=== PATIENT | female | born 1965 | race Caucasian/White ===

== ENCOUNTER 2016-12-06 17:02 | Inpatient (IN) | payer OTHER ==
[~2016-12-06] VITALS: Ht 167.6 cm; Wt 109.2 kg
[~2016-12-06 17:02] MED LIST: ATOR40TA78 PO; AZEL205. INH; COLE1TAB2 PO; COLE625T12 PO; DEXA1.5T7 PO; DICY20TA29 PO; DULO60CA7 PO; ESOM2.5S PO; FURO-92 PO; FURO80TA77 PO; GABA-826 PO; GABA800T2 PO; HYDR-882 PO; HYDR200T PO; IPRA14.7 INH; LISI-167 PO; LORA2TAB99 PO; METF10002 PO; METF500T27 PO; METO-93 PO; METO200T5 PO; ONDA4TAB10 PO; OXYC15TA PO; OXYC20TA42 PO; PREG200C PO; SAXA5TAB PO; SPIR25TA PO; TIOT18CA INH; VIT B SQ; [UNRECOGNIZED DRUG - CODE] PO
[2016-12-06] MEDS ORDERED: ALBUTEROL/IPRATROPIUM 2.5MG/0.5MG, 3 ML ONE (17:27)
[2016-12-06] MEDS ORDERED: ALBUTEROL/IPRATROPIUM 2.5MG/0.5MG, 3 ML NPPB SCH (17:30)
[2016-12-06] MEDS ORDERED: SODIUM CHLORIDE FLUSH 10ML SYR IVF ONE ×2 (17:30→18:00)
[2016-12-06 17:37] LABS: HEMOGLOBIN 17.1 g/dL (11.7-16.4); WHITE BLOOD COUNT 13.9 x10^3/uL (3.4-10)
[2016-12-06 17:46] LABS: BLOOD UREA NITROGEN 7 mg/dL (7-18)
[2016-12-06] MEDS ORDERED: ALBUTEROL SULFATE 2.5 MG/3 ML ONE (18:13)
[2016-12-06] MEDS ORDERED: ALBUTEROL SULFATE 2.5 MG/3 ML NPPB PRN (18:15)
[2016-12-06 18:23] LABS: ASPARTATE AMINO TRANSFERASE 34 U/L (15-37)
[2016-12-06] MEDS ORDERED: FLUT16SP NAS (18:28)
[2016-12-06] MEDS ORDERED: DULO60CA7 PO (18:28)
[2016-12-06] MEDS ORDERED: GABA600T2 PO (18:28)
[2016-12-06] MEDS ORDERED: ALLO300T PO (18:28)
[2016-12-06 18:29] LABS: IS PT STATUS REG ER OR PRE ER? YES
[2016-12-06] MEDS: ALBUTEROL 0.5%, 20ML NPPB SCH ×2 (18:29→18:41)
[2016-12-06] MEDS ORDERED: ALBUTEROL SULFATE 2.5MG/0.5ML ONE (18:32)
[2016-12-06] MEDS ORDERED: METO50TA82 PO (18:35)
[2016-12-06] MEDS ORDERED: BUPIVACAINE TP (18:35)
[2016-12-06] MEDS ORDERED: METF500T4 PO (18:35)
[2016-12-06] MEDS ORDERED: FURO-93 PO (18:35)
[2016-12-06] MEDS ORDERED: SPIR25TA3 PO (18:35)
[2016-12-06] MEDS ORDERED: INDO50CA PO (18:35)
[2016-12-06] MEDS ORDERED: SULF-169 PO (18:35)
[2016-12-06] MEDS ORDERED: ATOR40TA PO (18:35)
[2016-12-06] MEDS ORDERED: INSU200I4 SQ (18:35)
[2016-12-06] MEDS ORDERED: HYDROCORTISONE PO ×2 (18:35)
[2016-12-06] MEDS ORDERED: LACT1CAP35 PO (18:35)
[2016-12-06 21:52] VITALS: BP 110/73
[2016-12-06] MEDS ORDERED: ALBUTEROL/IPRATROPIUM 2.5MG/0.5MG, 3 ML NPPB PRN (22:00)
[2016-12-06] MEDS: ALBUTEROL/IPRATROPIUM 2.5MG/0.5MG, 3 ML NPPB SCH (22:00)
[2016-12-07] MEDS ORDERED: TEMAZEPAM 15 MG CAPSULE PO PRN
[2016-12-07] MEDS ORDERED: ENALAPRILAT 1.25 MG/ML, 2ML IVPush PRN
[2016-12-07] MEDS ORDERED: ONDANSETRON ODT 4 MG PO PRN
[2016-12-07] MEDS: CEFDINIR 300 MG CAPSULE PO SCH ×2 (00:46→12:07)
[2016-12-07] MEDS: ENOXAPARIN 40 MG/0.4 ML SQ SCH (00:46)
[2016-12-07] MEDS: NICOTINE 14MG/24 HR PATCH.TD24 TD SCH (00:46)
[2016-12-07] MEDS: DOXYCYCLINE 100MG TABLET PO SCH ×2 (00:46→08:38)
[2016-12-07 00:51] VITALS: BP 117/69
[2016-12-07 05:38] LABS: HEMATOCRIT 48.3 % (34.6-47.8)
[2016-12-07 05:42] LABS: BLOOD UREA NITROGEN 12 mg/dL (7-18)
[2016-12-07] MEDS: ALBUTEROL/IPRATROPIUM 2.5MG/0.5MG, 3 ML NPPB SCH ×4 (07:38→20:10)
[2016-12-07 07:43] VITALS: BP 109/67
[2016-12-07 10:18] VITALS: BP 99/61
[2016-12-07] MEDS: INSULIN ASPART 100 UNITS/ML, PEN SQ-INSULIN SCH ×3 (12:07→22:02)
[2016-12-07] MEDS ORDERED: SODIUM CHLORIDE 0.9% 1,000 ML IV SCH (13:41)
[2016-12-07 14:13] VITALS: BP 114/62
[2016-12-07] MEDS ORDERED: OMNIPAQUE 350 MG/ML, 100ML BOTTLE ONE (14:37)
[2016-12-07] MEDS: methylPREDNISolone SOD SUCC 125 MG/2 ML IVPush SCH ×2 (16:15→22:03)
[2016-12-07] MEDS: GABAPENTIN 400 MG CAPSULE PO SCH ×2 (16:15→22:04)
[2016-12-07] MEDS ORDERED: HYDROcodone/APAP 5/325 TABLET PO PRN (17:00)
[2016-12-07] MEDS: CEFTRIAXONE PMX 1GM/50ML 50 ML IV SCH (17:26)
[2016-12-07] MEDS: DOXYCYCLINE 100 MG in DEXTROSE 5% 250 ML IV SCH (17:26)
[2016-12-07 20:45] VITALS: BP 113/61
[2016-12-07] MEDS ORDERED: DIPHENHYDRAMINE 50 MG CAPSULE PO PRN (21:00)
[2016-12-07] MEDS ORDERED: DIPHENHYDRAMINE 25 MG CAPSULE ONE (21:26)
[2016-12-07] MEDS: ATORVASTATIN 40 MG TABLET PO SCH (22:03)
[2016-12-07] MEDS: INSULIN DETEMIR 100 UNITS/ML, PEN SQ-INSULIN SCH (22:03)
[2016-12-08 02:40] VITALS: BP 121/69
[2016-12-08] MEDS: ALBUTEROL/IPRATROPIUM 2.5MG/0.5MG, 3 ML NPPB SCH ×4 (03:06→19:28)
[2016-12-08] MEDS: methylPREDNISolone SOD SUCC 125 MG/2 ML IVPush SCH ×4 (04:00→22:00)
[2016-12-08] MEDS: DOXYCYCLINE 100 MG in DEXTROSE 5% 250 ML IV SCH ×2 (05:06→16:42)
[2016-12-08 06:01] LABS: HEMATOCRIT 44.5 % (34.6-47.8); HEMOGLOBIN 14.6 g/dL (11.7-16.4); WHITE BLOOD COUNT 15.7 x10^3/uL (3.4-10)
[2016-12-08 06:11] LABS: BLOOD UREA NITROGEN 12 mg/dL (7-18)
[2016-12-08 07:52] VITALS: BP 104/57
[2016-12-08] MEDS: INSULIN ASPART 100 UNITS/ML, PEN SQ-INSULIN SCH ×4 (08:54→20:44)
[2016-12-08] MEDS: INSULIN DETEMIR 100 UNITS/ML, PEN SQ-INSULIN SCH ×2 (08:55→20:43)
[2016-12-08] MEDS: FUROSEMIDE 20 MG TABLET PO SCH (08:55)
[2016-12-08] MEDS: SPIRONOLACTONE 25 MG TABLET PO SCH (08:55)
[2016-12-08] MEDS: GABAPENTIN 400 MG CAPSULE PO SCH ×3 (08:55→20:41)
[2016-12-08] MEDS: ALLOPURINOL 300 MG TABLET PO SCH (08:56)
[2016-12-08] MEDS: DULOXETINE 30 MG CAPSULE.DR PO SCH (08:56)
[2016-12-08] MEDS: LACTOBACILLUS CHEW TABLET PO SCH (08:56)
[2016-12-08] MEDS: FLUTICASONE NASAL SPRAY 16GM NAS SCH (11:16)
[2016-12-08] MEDS: GUAIFENESIN 200 MG TABLET PO SCH ×3 (11:16→20:41)
[2016-12-08 13:45] VITALS: BP 106/65
[2016-12-08] MEDS: CEFTRIAXONE PMX 1GM/50ML 50 ML IV SCH (16:42)
[2016-12-08 19:41] VITALS: BP 117/63
[2016-12-08] MEDS: ATORVASTATIN 40 MG TABLET PO SCH (20:41)
[2016-12-08] MEDS: TEMAZEPAM 15 MG CAPSULE PO PRN (21:39)
[2016-12-08] MEDS: NICOTINE 14MG/24 HR PATCH.TD24 TD SCH ×2 (23:15)
[2016-12-08] MEDS: ENOXAPARIN 40 MG/0.4 ML SQ SCH ×2 (23:16)
[2016-12-09 01:13] VITALS: BP 122/68
[2016-12-09] MEDS ORDERED: VANCOMYCIN PER PHARMACY MC PRN (03:00)
[2016-12-09] MEDS: ALBUTEROL/IPRATROPIUM 2.5MG/0.5MG, 3 ML NPPB SCH ×4 (03:10→21:00)
[2016-12-09] MEDS ORDERED: PHARMACOKINETIC MONITORING MC PRN (03:30)
[2016-12-09] MEDS ORDERED: PHARMACOKINETIC CONSULTATION MC ONE (03:30)
[2016-12-09] MEDS: methylPREDNISolone SOD SUCC 125 MG/2 ML IVPush SCH ×2 (03:46→10:35)
[2016-12-09] MEDS: VANCOMYCIN 1,600 MG in SODIUM CHLORIDE 0.9% 250 ML IV SCH ×2 (03:49→17:07)
[2016-12-09] MEDS: DOXYCYCLINE 100 MG in DEXTROSE 5% 250 ML IV SCH ×2 (05:00→18:35)
[2016-12-09 05:31] LABS: HEMATOCRIT 43.8 % (34.6-47.8); HEMOGLOBIN 14.3 g/dL (11.7-16.4); WHITE BLOOD COUNT 19.9 x10^3/uL (3.4-10)
[2016-12-09 05:32] LABS: BLOOD UREA NITROGEN 13 mg/dL (7-18)
[2016-12-09] MEDS: GUAIFENESIN 200 MG TABLET PO SCH ×4 (06:00→20:22)
[2016-12-09] MEDS: INSULIN DETEMIR 100 UNITS/ML, PEN SQ-INSULIN SCH ×2 (08:31→20:24)
[2016-12-09] MEDS: FLUTICASONE NASAL SPRAY 16GM NAS SCH (08:32)
[2016-12-09] MEDS: INSULIN ASPART 100 UNITS/ML, PEN SQ-INSULIN SCH ×4 (08:32→20:25)
[2016-12-09] MEDS: GABAPENTIN 400 MG CAPSULE PO SCH ×3 (08:33→20:23)
[2016-12-09] MEDS: SPIRONOLACTONE 25 MG TABLET PO SCH (08:33)
[2016-12-09] MEDS: LACTOBACILLUS CHEW TABLET PO SCH (08:33)
[2016-12-09] MEDS: ALLOPURINOL 300 MG TABLET PO SCH (08:33)
[2016-12-09] MEDS: DULOXETINE 30 MG CAPSULE.DR PO SCH (08:33)
[2016-12-09] MEDS: FUROSEMIDE 20 MG TABLET PO SCH (08:33)
[2016-12-09 09:06] VITALS: BP 122/71
[2016-12-09] MEDS: CEFTRIAXONE PMX 1GM/50ML 50 ML IV SCH (16:16)
[2016-12-09 19:38] VITALS: BP 144/81
[2016-12-09] MEDS: ATORVASTATIN 40 MG TABLET PO SCH (20:22)
[2016-12-09] MEDS: TEMAZEPAM 15 MG CAPSULE PO PRN (20:27)
[2016-12-09] MEDS: ENOXAPARIN 40 MG/0.4 ML SQ SCH (23:25)
[2016-12-09] MEDS: NICOTINE 14MG/24 HR PATCH.TD24 TD SCH (23:26)
[2016-12-10 00:49] VITALS: BP 113/70
[2016-12-10] MEDS: ALBUTEROL/IPRATROPIUM 2.5MG/0.5MG, 3 ML NPPB SCH ×3 (03:00→13:26)
[2016-12-10] MEDS: VANCOMYCIN 1,600 MG in SODIUM CHLORIDE 0.9% 250 ML IV SCH (04:55)
[2016-12-10] MEDS: GUAIFENESIN 200 MG TABLET PO SCH ×2 (06:24→11:49)
[2016-12-10] MEDS: DOXYCYCLINE 100 MG in DEXTROSE 5% 250 ML IV SCH (06:24)
[2016-12-10 06:44] LABS: HEMATOCRIT 43.6 % (34.6-47.8); HEMOGLOBIN 14.1 g/dL (11.7-16.4)
[2016-12-10 06:52] LABS: BLOOD UREA NITROGEN 13 mg/dL (7-18)
[2016-12-10] MEDS: INSULIN ASPART 100 UNITS/ML, PEN SQ-INSULIN SCH ×2 (07:57→11:49)
[2016-12-10] MEDS: GABAPENTIN 400 MG CAPSULE PO SCH (07:59)
[2016-12-10] MEDS: FLUTICASONE NASAL SPRAY 16GM NAS SCH (07:59)
[2016-12-10] MEDS: DULOXETINE 30 MG CAPSULE.DR PO SCH (08:00)
[2016-12-10] MEDS: SPIRONOLACTONE 25 MG TABLET PO SCH (08:01)
[2016-12-10] MEDS: ALLOPURINOL 300 MG TABLET PO SCH (08:01)
[2016-12-10] MEDS: FUROSEMIDE 20 MG TABLET PO SCH (08:01)
[2016-12-10] MEDS: LACTOBACILLUS CHEW TABLET PO SCH (08:01)
[2016-12-10] MEDS: INSULIN DETEMIR 100 UNITS/ML, PEN SQ-INSULIN SCH (08:02)
[2016-12-10 08:10] VITALS: BP 124/62
[2016-12-10 13:02] VITALS: BP 128/76
[2016-12-10] MEDS ORDERED: INSU100C SQ-INSULIN (13:21)
[2016-12-10] MEDS ORDERED: PRED20TA PO (13:21)
== END 2016-12-10 14:46 | disposition home or self-care (01) | DRG 871 ==
LOC: ED 19:36 → EDIP 20:33 → 4WST 21:52
PROVIDERS: ADMIT Internal Medicine; ATTEND Internal Medicine
DX: A41.9 Sepsis, unspecified organism (principal); J96.01 Acute respiratory failure with hypoxia; K31.84 Gastroparesis; J18.9 Pneumonia, unspecified organism; E11.43 Type 2 diabetes mellitus with diabetic autonomic (poly)neuropathy; J44.0 Chronic obstructive pulmonary disease with (acute) lower respiratory infection; E27.49 Other adrenocortical insufficiency; F11.20 Opioid dependence, uncomplicated; R78.81 Bacteremia; E87.1 Hypo-osmolality and hyponatremia; J44.1 Chronic obstructive pulmonary disease with (acute) exacerbation; J98.11 Atelectasis; K76.0 Fatty (change of) liver, not elsewhere classified; E66.01 Morbid (severe) obesity due to excess calories; G89.29 Other chronic pain; K21.9 Gastro-esophageal reflux disease without esophagitis; K58.9 Irritable bowel syndrome, unspecified; M19.90 Unspecified osteoarthritis, unspecified site; I10 Essential (primary) hypertension; F17.210 Nicotine dependence, cigarettes, uncomplicated; T38.0X5A Adverse effect of glucocorticoids and synthetic analogues, initial encounter; Y92.89 Other specified places as the place of occurrence of the external cause; Z68.38 Body mass index [BMI] 38.0-38.9, adult; Z79.4 Long term (current) use of insulin; Z82.49 Family history of ischemic heart disease and other diseases of the circulatory system; Z83.3 Family history of diabetes mellitus; Z96.643 Presence of artificial hip joint, bilateral; Z90.49 Acquired absence of other specified parts of digestive tract; Z90.710 Acquired absence of both cervix and uterus; Z88.0 Allergy status to penicillin; Z91.040 Latex allergy status; D72.829 Elevated white blood cell count, unspecified
CPT/HCPCS: 36415; 71010; 71275; 80048; 80076; 81003; 82040; 82668; 82947; 82962; 83036; 83605; 83880; 84145; 84484; 85025; 87040; 87070; 87205; 93005; 93306; 94640; 94644; 99285; J0696; J1650; J1815; J3370; J7060; J7613; J7620; Q9967; J2930; J7030; J7050; J7512

== ENCOUNTER → 2017-08-30 | Outpatient (CLI) | payer OTHER, MEDICAID ==
[~2017-08-30] MED LIST changes: +ALLO300T PO; +ATOR40TA PO; +BUPIVACAINE TP; +FLUT16SP NAS; +FURO-93 PO; +GABA600T2 PO; -HYDR200T PO; +HYDR200T72 PO; +HYDROCORTISONE PO; +INDO50CA PO; +INSU100C SQ-INSULIN; +INSU200I4 SQ; +LACT1CAP35 PO; +METF500T4 PO; +METO200T47 PO; -METO200T5 PO; +METO50TA82 PO; +PRED20TA PO; +REGADENOSON 0.4 MG/5 ML SYRINGE ONE; +SPIR25TA3 PO; +SULF-169 PO
== END | disposition home or self-care (01) ==
LOC: CFH 12:38
PROVIDERS: ATTEND Internal Medicine Cardiovascular Disease
DX: I10 Essential (primary) hypertension (principal); E11.9 Type 2 diabetes mellitus without complications; E78.5 Hyperlipidemia, unspecified; F17.200 Nicotine dependence, unspecified, uncomplicated; R06.02 Shortness of breath
CPT/HCPCS: 78452; 93017; A9502; J2785

== ENCOUNTER 2017-09-11 08:20 | Day surgery (SDC) | payer OTHER, MEDICAID ==
[2017-09-08 08:46] VITALS: BP 134/79
[2017-09-08 09:29] LABS: BASOPHILS # (AUTO) 0.06 x10^3/uL (0-0.1); BASOPHILS % (AUTO) 1 % (0-1); EOSINOPHILS # (AUTO) 0.16 x10^3/uL (0-0.4); EOSINOPHILS % (AUTO) 1 % (1-7); LYMPHOCYTES # (AUTO) 2.78 x10^3/uL (1-3.4); LYMPHOCYTES % (AUTO) 24 % (22-44); MD NO; MEAN CORPUSCULAR HEMOGLOBIN 29.8 pg (27.0-34.8); MEAN CORPUSCULAR HGB CONC 32.8 g/dL (32.4-35.8); MEAN CORPUSCULAR VOLUME 90.9 fL (80-100); MEAN PLATELET VOLUME 7.3 fL (7.4-10.4); MONOCYTES # (AUTO) 0.48 x10^3/uL (0.2-0.8); MONOCYTES % (AUTO) 4 % (2-9); NEUTROPHILS # (AUTO) 8.11 x10^3/uL (1.8-6.8); NEUTROPHILS % (AUTO) 70 % (42-75); PLATELET COUNT 300 x10^3/uL (130-400); RED BLOOD COUNT 5.26 x10^6/uL (3.82-5.3); RED CELL DISTRIBUTION WIDTH 14.8 % (9.6-15.2)
[2017-09-08 09:37] LABS: ANION GAP 9 mmol/L (5-15); CHLORIDE 99 mmol/L (98-107); CREATININE 0.88 mg/dL (0.55-1.02)
[~2017-09-11] VITALS: Ht 168.9 cm; Wt 110.0 kg
[~2017-09-11 08:20] MED LIST changes: +BUPR150T6 PO; +DILAUDID SC; +INSU100C5 SQ-INSULIN; -REGADENOSON 0.4 MG/5 ML SYRINGE ONE
[2017-09-11] MEDS ORDERED: SODIUM CHLORIDE 0.9% 1,000 ML IV ONE (08:38)
[2017-09-11] MEDS ORDERED: ASPIRIN 325 MG TABLET EC PO ONE (09:00)
[2017-09-11] MEDS ORDERED: POTA10CA PO (09:01)
[2017-09-11] MEDS ORDERED: ASPI-496 PO (09:06)
[2017-09-11] MEDS ORDERED: HYDROcodone/APAP 10/325 MG TABLET ONE (09:56)
[2017-09-11] MEDS ORDERED: HYDROcodone/APAP 10/325 MG TABLET PO ONE (10:00)
[2017-09-11] MEDS ORDERED: MIDAZOLAM 1 MG/ML, 5ML ONE (10:42)
[2017-09-11] MEDS ORDERED: FENTANYL PF 100 MCG/2ML ONE (10:42)
[2017-09-11] MEDS ORDERED: BIVALIRUDIN 250 MG ONE (10:43)
[2017-09-11] MEDS ORDERED: NITROGLYCERIN 5 MG/ML, 10ML ONE (10:43)
[2017-09-11] MEDS ORDERED: SODIUM CHLORIDE 0.9% 1,000 ML IV SCH (11:36)
== END 2017-09-11 16:18 | disposition home or self-care (01) ==
LOC: CACL 08:20
PROVIDERS: ATTEND Internal Medicine Cardiovascular Disease
DX: I25.10 Atherosclerotic heart disease of native coronary artery without angina pectoris (principal); E11.9 Type 2 diabetes mellitus without complications; I10 Essential (primary) hypertension; E78.5 Hyperlipidemia, unspecified; E66.9 Obesity, unspecified; F17.210 Nicotine dependence, cigarettes, uncomplicated; Z79.82 Long term (current) use of aspirin
CPT/HCPCS: 36415; 80048; 85025; 93458; 99156; C1769; C1894; J0583; J2250; J3010; Q9967

== ENCOUNTER 2017-09-20 22:26 | Inpatient (IN) | payer OTHER, MEDICAID ==
[~2017-09-20] VITALS: Ht 167.6 cm; Wt 103.3 kg
[~2017-09-20 22:26] MED LIST changes: +ASPI-496 PO; -METF500T4 PO; +METF500T5 PO; +POTA10CA PO
[2017-09-21 00:17] LABS: BASOPHILS # (AUTO) 0.06 x10^3/uL (0-0.1); BASOPHILS % (AUTO) 1 % (0-1); EOSINOPHILS # (AUTO) 0.23 x10^3/uL (0-0.4); EOSINOPHILS % (AUTO) 2 % (1-7); LYMPHOCYTES # (AUTO) 3.87 x10^3/uL (1-3.4); LYMPHOCYTES % (AUTO) 32 % (22-44); MD NO; MEAN CORPUSCULAR HEMOGLOBIN 29.9 pg (27.0-34.8); MEAN CORPUSCULAR HGB CONC 33.3 g/dL (32.4-35.8); MEAN CORPUSCULAR VOLUME 89.9 fL (80-100); MEAN PLATELET VOLUME 7.5 fL (7.4-10.4); MONOCYTES # (AUTO) 0.51 x10^3/uL (0.2-0.8); MONOCYTES % (AUTO) 4 % (2-9); NEUTROPHILS % (AUTO) 62 % (42-75); PLATELET COUNT 260 x10^3/uL (130-400); RED BLOOD COUNT 5.02 x10^6/uL (3.82-5.3); RED CELL DISTRIBUTION WIDTH 14.5 % (9.6-15.2)
[2017-09-21 00:28] LABS: ALBUMIN 3.6 g/dL (3.4-5.0); ANION GAP 10 mmol/L (5-15); CALCIUM 8.9 mg/dL (8.5-10.1); CHLORIDE 99 mmol/L (98-107)
[2017-09-21 00:32] LABS: TROPONIN I < 0.015 ng/mL (0.000-0.045)
[2017-09-21] MEDS ORDERED: ACETAMINOPHEN 325 MG TABLET PO ONE (01:30)
[2017-09-21] MEDS ORDERED: METHOCARBAMOL 750 MG TABLET PO ONE (01:30)
[2017-09-21] MEDS ORDERED: OMNIPAQUE 350 MG/ML, 100ML BOTTLE ONE (01:34)
[2017-09-21] MEDS ORDERED: GUAIFENESIN/DM 200-20MG, 10ML UDC PO PRN (04:30)
[2017-09-21] MEDS ORDERED: TEMAZEPAM 15 MG CAPSULE PO PRN (04:30)
[2017-09-21] MEDS ORDERED: ACETAMINOPHEN 325 MG TABLET PO PRN (04:30)
[2017-09-21] MEDS ORDERED: ONDANSETRON 2MG/ML, 2ML IVPush PRN (04:30)
[2017-09-21] MEDS ORDERED: ONDANSETRON ODT 4 MG PO PRN (04:30)
[2017-09-21 05:00] LABS: HEMOGLOBIN A1C 8.9 % (4.2-6.3)
[2017-09-21 05:15] VITALS: BP 116/69
[2017-09-21 06:42] VITALS: BP 110/68
[2017-09-21] MEDS: INSULIN LISPRO 100 UNITS/ML, PEN SQ-INSULIN SCH ×6 (07:00→21:11)
[2017-09-21] MEDS: methylPREDNISolone SOD SUCC 125 MG/2 ML IV SCH ×3 (08:27→20:58)
[2017-09-21] MEDS: GABAPENTIN 400 MG CAPSULE PO SCH ×3 (08:30→20:58)
[2017-09-21] MEDS: DULOXETINE 30 MG CAPSULE.DR PO SCH ×2 (08:30→20:58)
[2017-09-21] MEDS: SPIRONOLACTONE 25 MG TABLET PO SCH (08:30)
[2017-09-21] MEDS: ALLOPURINOL 300 MG TABLET PO SCH (08:30)
[2017-09-21] MEDS: METOPROLOL TARTRATE 50 MG TABLET PO SCH (08:31)
[2017-09-21] MEDS: ASPIRIN 81 MG TABLET EC PO SCH (08:31)
[2017-09-21] MEDS: ENOXAPARIN 40 MG/0.4 ML SQ SCH (08:35)
[2017-09-21] MEDS ORDERED: methylPREDNISolone SOD SUCC 40 MG/ML IV SCH (09:00)
[2017-09-21] MEDS: ALBUTEROL/IPRATROPIUM 2.5MG/0.5MG, 3 ML NPPB SCH ×3 (09:00→21:00)
[2017-09-21] MEDS ORDERED: BUPROPION HCL 150 MG PO SCH (09:00)
[2017-09-21] MEDS: GUAIFENESIN 200 MG TABLET PO SCH ×3 (11:30→20:58)
[2017-09-21] MEDS ORDERED: ALBUTEROL SULFATE 2.5 MG/3 ML NPPB PRN (11:30)
[2017-09-21 12:11] VITALS: BP 98/58
[2017-09-21 20:00] VITALS: BP 101/61
[2017-09-21] MEDS ORDERED: ATORVASTATIN 40 MG TABLET PO SCH (21:00)
[2017-09-22] MEDS: methylPREDNISolone SOD SUCC 125 MG/2 ML IV SCH (03:58)
[2017-09-22 04:05] VITALS: BP 109/63
[2017-09-22 04:54] LABS: BASOPHILS # (AUTO) 0.01 x10^3/uL (0-0.1); BASOPHILS % (AUTO) 0 % (0-1); EOSINOPHILS % (AUTO) 0 % (1-7); LYMPHOCYTES # (AUTO) 1.23 x10^3/uL (1-3.4); LYMPHOCYTES % (AUTO) 8 % (22-44); MD NO; MEAN CORPUSCULAR HEMOGLOBIN 29.8 pg (27.0-34.8); MEAN CORPUSCULAR VOLUME 90.4 fL (80-100); MEAN PLATELET VOLUME 7.7 fL (7.4-10.4); MONOCYTES # (AUTO) 0.11 x10^3/uL (0.2-0.8); MONOCYTES % (AUTO) 1 % (2-9); NEUTROPHILS # (AUTO) 14.48 x10^3/uL (1.8-6.8); NEUTROPHILS % (AUTO) 92 % (42-75); PLATELET COUNT 266 x10^3/uL (130-400); RED BLOOD COUNT 5.12 x10^6/uL (3.82-5.3); RED CELL DISTRIBUTION WIDTH 14.4 % (9.6-15.2)
[2017-09-22 05:05] LABS: ALBUMIN 3.2 g/dL (3.4-5.0); ANION GAP 9 mmol/L (5-15); CALCIUM 9.1 mg/dL (8.5-10.1); CHLORIDE 100 mmol/L (98-107)
[2017-09-22 05:11] LABS: ALANINE AMINOTRANSFERASE 54 U/L (12-78); ALKALINE PHOSPHATASE 87 U/L (45-117); BILIRUBIN,TOTAL 0.5 mg/dL (0.2-1.0); CREATININE 0.69 mg/dL (0.55-1.02)
[2017-09-22] MEDS: GUAIFENESIN 200 MG TABLET PO SCH ×2 (06:01→10:53)
[2017-09-22 06:36] VITALS: BP 102/59
[2017-09-22] MEDS: ASPIRIN 81 MG TABLET EC PO SCH (08:05)
[2017-09-22] MEDS: DULOXETINE 30 MG CAPSULE.DR PO SCH (08:06)
[2017-09-22] MEDS: SPIRONOLACTONE 25 MG TABLET PO SCH (08:06)
[2017-09-22] MEDS: ALLOPURINOL 300 MG TABLET PO SCH (08:06)
[2017-09-22] MEDS: GABAPENTIN 400 MG CAPSULE PO SCH (08:06)
[2017-09-22] MEDS: ENOXAPARIN 40 MG/0.4 ML SQ SCH (08:07)
[2017-09-22] MEDS: METOPROLOL TARTRATE 50 MG TABLET PO SCH (08:07)
[2017-09-22] MEDS: INSULIN LISPRO 100 UNITS/ML, PEN SQ-INSULIN SCH ×2 (08:08→10:53)
[2017-09-22] MEDS ORDERED: methylPREDNISolone SOD SUCC 125 MG/2 ML IV SCH (09:00)
[2017-09-22] MEDS ORDERED: OLAN1CAP INH (10:33)
[2017-09-22] MEDS ORDERED: TIOT18CA INH (10:33)
[2017-09-22] MEDS ORDERED: ALBU90AE INH (10:33)
[2017-09-22] MEDS ORDERED: GUAI200T3 PO (10:34)
[2017-09-22] MEDS ORDERED: PRED20TA PO (10:35)
[2017-09-22] MEDS ORDERED: BUDE10.2 INH (11:33)
[2017-09-22] MEDS ORDERED: PRED10TA14 PO (12:43)
== END 2017-09-22 12:38 | disposition home or self-care (01) | DRG 189 ==
LOC: ED 23:59 → EDIP 09-21 04:21 → 3NW 09-21 04:51
PROVIDERS: ADMIT Internal Medicine; ATTEND Internal Medicine
DX: J96.01 Acute respiratory failure with hypoxia (principal); J44.1 Chronic obstructive pulmonary disease with (acute) exacerbation; Z88.0 Allergy status to penicillin; Z88.8 Allergy status to other drugs, medicaments and biological substances; F17.200 Nicotine dependence, unspecified, uncomplicated; E11.42 Type 2 diabetes mellitus with diabetic polyneuropathy; E11.43 Type 2 diabetes mellitus with diabetic autonomic (poly)neuropathy; E11.65 Type 2 diabetes mellitus with hyperglycemia; E78.5 Hyperlipidemia, unspecified; G89.4 Chronic pain syndrome; I10 Essential (primary) hypertension; I25.10 Atherosclerotic heart disease of native coronary artery without angina pectoris; I27.20 Pulmonary hypertension, unspecified; K21.9 Gastro-esophageal reflux disease without esophagitis; K31.84 Gastroparesis; Z79.4 Long term (current) use of insulin; Z79.52 Long term (current) use of systemic steroids; Z82.49 Family history of ischemic heart disease and other diseases of the circulatory system; Z83.3 Family history of diabetes mellitus; Z86.711 Personal history of pulmonary embolism; Z90.710 Acquired absence of both cervix and uterus; Z96.643 Presence of artificial hip joint, bilateral
CPT/HCPCS: 36415; 71045; 71275; 80048; 80053; 82040; 82962; 83036; 83880; 84484; 85025; 93005; 96372; 99285; J1650; Q9967; J1815; J2930

== ENCOUNTER → 2017-09-28 | Outpatient (CLI) | payer OTHER, MEDICAID ==
[~2017-09-28] MED LIST changes: +ALBU90AE INH; +BUDE10.2 INH; +GUAI200T3 PO; +OLAN1CAP INH; +PRED10TA14 PO
== END | disposition home or self-care (01) ==
LOC: CFH 07:31
PROVIDERS: ATTEND Internal Medicine Cardiovascular Disease
DX: I51.7 Cardiomegaly (principal); I35.8 Other nonrheumatic aortic valve disorders; R06.02 Shortness of breath; R00.1 Bradycardia, unspecified
CPT/HCPCS: 93306

== ENCOUNTER → 2017-10-06 | Outpatient (CLI) | payer OTHER, MEDICAID | END | disposition home or self-care (01) | LOC: CFH 12:00 | PROVIDERS: ATTEND Family Medicine | DX: N63.20 Unspecified lump in the left breast, unspecified quadrant (principal); Z80.3 Family history of malignant neoplasm of breast | CPT/HCPCS: 77066 ==

== ENCOUNTER 2018-09-03 17:21 | Emergency (ER) | payer OTHER ==
[~2018-09-03] VITALS: Ht 167.6 cm; Wt 108.0 kg
[~2018-09-03 17:21] MED LIST changes: +CEFD300C37 PO; -FLUT16SP NAS; +FLUT16SP24 NAS; -GABA600T2 PO; +GABA600T7 PO; -GABA800T2 PO; +GABA800T5 PO; +HYDR-3653 PO; -HYDR-882 PO; -INDO50CA PO; +INDO50CA5 PO; +MELO15TA24 PO; +METF500T17 PO; -METF500T5 PO; +PARO30TA45 PO; +PRED50TA PO; -SPIR25TA3 PO; +SPIR25TA5 PO
--- NOTE | 2018-09-03 17:56 | NUR ---
Pt to rm 21 from lobby
[2018-09-03 18:11] LABS: ALBUMIN 3.8 g/dL (3.4-5.0); ANION GAP 5 mmol/L (5-15); CALCIUM 9.2 mg/dL (8.5-10.1); CHLORIDE 102 mmol/L (98-107)
[2018-09-03 18:20] LABS: ALANINE AMINOTRANSFERASE 44 U/L (12-78); ALKALINE PHOSPHATASE 123 U/L (45-117); BILIRUBIN,TOTAL 0.3 mg/dL (0.2-1.0); CREATININE 0.74 mg/dL (0.55-1.02); TOTAL PROTEIN 7.7 g/dL (6.4-8.2)
[2018-09-03 18:22] LABS: MD YES; MEAN CORPUSCULAR HGB CONC 31.8 g/dL (32.4-35.8); MEAN CORPUSCULAR VOLUME 88.1 fL (80-100); MEAN PLATELET VOLUME 7.8 fL (7.4-10.4); PLATELET COUNT 351 x10^3/uL (130-400); RED BLOOD COUNT 5.87 x10^6/uL (3.82-5.3); RED CELL DISTRIBUTION WIDTH 15.4 % (9.6-15.2)
[2018-09-03] MEDS ORDERED: ONDANSETRON 2MG/ML, 2ML IVPush ONE (18:30)
[2018-09-03] MEDS ORDERED: HYDROmorphone 2 MG/ML, 1ML IVPush PRN (18:30)
[2018-09-03 18:39] LABS: <PLATELET ESTIMATE> ADEQUATE; <PLT MORPHOLOGY> NORMAL PLT MORPH; <RBC MORPHOLOGY> NORMAL; BAND#(MANUAL) 0.16 x10^3/uL; BANDS%(MANUAL) 1 % (0-7); LYMPH#(MANUAL) 4.24 x10^3/uL (1-3.4); LYMPHS% (MANUAL) 26 % (22-44); MONOS#(MANUAL) 0.65 x10^3/uL (0.3-2.7); MONOS% (MANUAL) 4 % (2-9); SEG#(MANUAL) 11.25 x10^3/uL (1.8-6.8); SEGS% (MANUAL) 69 % (42-75)
--- NOTE | 2018-09-03 19:00 | NUR ---
LATE ENTRY-PT WENT TO CT, PT BACK IN ROOM. FAMILY AT BEDSIDE. IV MALFUNCTIONED, UNABLE TO COMPLETE CT. VSS, REPORT TO NOC RN
[2018-09-03 19:02] LABS: TROPONIN I < 0.015 ng/mL (0.000-0.045)
[2018-09-03] MEDS ORDERED: HYDROmorphone 1 MG/ML, 1ML VIAL ONE (19:09)
[2018-09-03] MEDS ORDERED: ONDANSETRON 2MG/ML, 2ML ONE (19:09)
--- NOTE | 2018-09-03 19:23 | NUR ---
BS REPORT OF PT FROM SINDHU GALLARDO AND ASSUMING CARE OF PT AT THIS TIME. PT MEDICATED PER MAR FOR PAIN. PT ASSISTED TO AMBULATE STANDBY ASSIST TO RESTROOM FOR UA.
--- NOTE | 2018-09-03 19:38 | NUR ---
PT URINE COLLECTED AND TUBED TO LAB
[2018-09-03 19:52] LABS: MICROSCOPIC AUTO
[2018-09-03 19:55] LABS: CULTURE INDICATED? YES
[2018-09-03] MEDS ORDERED: OMNIPAQUE 350 MG/ML, 100ML BOTTLE ONE (20:00)
--- NOTE | 2018-09-03 20:00 | NUR ---
PT BACK FROM CT VIA [facility].
--- NOTE | 2018-09-03 20:24 | NUR ---
PT RESTING COMFORTABLY IN [facility] AT THIS TIME; AAKASH. PT PLACED ON 2L 02 NC.
[2018-09-03 20:46] VITALS: BP 108/60
[2018-09-03] MEDS ORDERED: FLUCONAZOLE 100 MG TABLET ONE (20:50)
[2018-09-03] MEDS ORDERED: FLUCONAZOLE 100 MG TABLET PO ONE (21:00)
--- NOTE | 2018-09-03 21:18 | NUR ---
PT D/C WITH D/C SUMMARY. ALL QUESTIONS ANSWERED. PT AMBULATES TO REGISTRATION DESK WITH STEADY GAIT FOR D/C HOME. PT DENIES ANY OTHER NEEDS PERTAINING TO THIS VISIT. PT VERBALIZES UNDERSTANDING OF F/U INSTRUCTIONS.
== END 2018-09-03 21:21 | disposition home or self-care (01) ==
LOC: ED 18:27
DX: S39.011A Strain of muscle, fascia and tendon of abdomen, initial encounter (principal); E10.65 Type 1 diabetes mellitus with hyperglycemia; F17.200 Nicotine dependence, unspecified, uncomplicated; J44.9 Chronic obstructive pulmonary disease, unspecified; I10 Essential (primary) hypertension; E10.40 Type 1 diabetes mellitus with diabetic neuropathy, unspecified; Z90.49 Acquired absence of other specified parts of digestive tract; Z90.710 Acquired absence of both cervix and uterus; X58.XXXA Exposure to other specified factors, initial encounter; Y93.89 Activity, other specified; Y92.89 Other specified places as the place of occurrence of the external cause; Y99.8 Other external cause status
CPT/HCPCS: 36415; 71275; 74021; 74177; 80053; 81001; 83690; 84484; 85025; 87086; 96374; 99284; J2405; Q9967

== ENCOUNTER 2018-11-05 14:47 | Emergency (ER) | payer OTHER ==
[~2018-11-05] VITALS: Ht 167.6 cm; Wt 106.0 kg
[2018-11-05 15:28] VITALS: BP 112/73
== END 2018-11-05 16:20 | disposition home or self-care (01) ==
LOC: ED 16:14
DX: S92.535A Nondisplaced fracture of distal phalanx of left lesser toe(s), initial encounter for closed fracture (principal); E11.9 Type 2 diabetes mellitus without complications; I10 Essential (primary) hypertension; J44.9 Chronic obstructive pulmonary disease, unspecified; K21.9 Gastro-esophageal reflux disease without esophagitis; Z90.89 Acquired absence of other organs; Z90.49 Acquired absence of other specified parts of digestive tract; Z90.710 Acquired absence of both cervix and uterus; X58.XXXA Exposure to other specified factors, initial encounter; Y93.89 Activity, other specified; Y92.89 Other specified places as the place of occurrence of the external cause; Y99.8 Other external cause status
CPT/HCPCS: 36415; 80053; 85025; 99283

== ENCOUNTER 2019-05-19 15:53 | Emergency (ER) | payer OTHER ==
[~2019-05-19] VITALS: Ht 167.6 cm; Wt 104.5 kg
[~2019-05-19 15:53] MED LIST changes: -GUAI200T3 PO; +GUAI200T37 PO; +INDO50CA15 PO; -INDO50CA5 PO
[2019-05-19 17:01] LABS: BASOPHILS # (AUTO) 0.07 x10^3/uL (0-0.1); BASOPHILS % (AUTO) 1 % (0-1); EOSINOPHILS # (AUTO) 0.21 x10^3/uL (0-0.4); EOSINOPHILS % (AUTO) 2 % (1-7); LYMPHOCYTES # (AUTO) 3.68 x10^3/uL (1-3.4); LYMPHOCYTES % (AUTO) 27 % (22-44); MD NO; MEAN CORPUSCULAR HEMOGLOBIN 28.5 pg (27.0-34.8); MEAN CORPUSCULAR VOLUME 86.6 fL (80-100); MEAN PLATELET VOLUME 7.6 fL (7.4-10.4); MONOCYTES # (AUTO) 0.34 x10^3/uL (0.2-0.8); MONOCYTES % (AUTO) 3 % (2-9); NEUTROPHILS # (AUTO) 9.45 x10^3/uL (1.8-6.8); NEUTROPHILS % (AUTO) 69 % (42-75); PLATELET COUNT 303 x10^3/uL (130-400); RED BLOOD COUNT 5.34 x10^6/uL (3.82-5.3); RED CELL DISTRIBUTION WIDTH 15.4 % (9.6-15.2)
[2019-05-19 17:11] LABS: ALBUMIN 3.3 g/dL (3.4-5.0); ANION GAP 7 mmol/L (5-15); CALCIUM 8.9 mg/dL (8.5-10.1); CHLORIDE 101 mmol/L (98-107)
[2019-05-19 17:14] LABS: ALANINE AMINOTRANSFERASE 37 U/L (12-78); ALKALINE PHOSPHATASE 111 U/L (45-117); BILIRUBIN,TOTAL 0.3 mg/dL (0.2-1.0); CREATININE 0.63 mg/dL (0.55-1.02); TOTAL PROTEIN 7.2 g/dL (6.4-8.2); TROPONIN I < 0.015 ng/mL (0.000-0.045)
[2019-05-19 17:22] VITALS: BP 130/85
== END 2019-05-19 18:34 | disposition home or self-care (01) ==
LOC: ED 16:20
DX: R00.2 Palpitations (principal); E11.65 Type 2 diabetes mellitus with hyperglycemia; D72.829 Elevated white blood cell count, unspecified
CPT/HCPCS: 36415; 71045; 80053; 83735; 83880; 84443; 84484; 85025; 93005; 99283

== ENCOUNTER 2019-05-25 08:10 | Observation (INO) | payer OTHER ==
[~2019-05-25] VITALS: Ht 167.6 cm; Wt 100.5 kg
--- NOTE | 2019-05-25 08:45 | NUR ---
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
[2019-05-25 09:51] LABS: BASOPHILS # (AUTO) 0.04 x10^3/uL (0-0.1); BASOPHILS % (AUTO) 0 % (0-1); EOSINOPHILS # (AUTO) 0.16 x10^3/uL (0-0.4); EOSINOPHILS % (AUTO) 1 % (1-7); LYMPHOCYTES # (AUTO) 2.99 x10^3/uL (1-3.4); LYMPHOCYTES % (AUTO) 21 % (22-44); MD NO; MEAN CORPUSCULAR HEMOGLOBIN 28.6 pg (27.0-34.8); MEAN CORPUSCULAR HGB CONC 32.5 g/dL (32.4-35.8); MEAN PLATELET VOLUME 7.4 fL (7.4-10.4); MONOCYTES # (AUTO) 0.38 x10^3/uL (0.2-0.8); MONOCYTES % (AUTO) 3 % (2-9); NEUTROPHILS # (AUTO) 10.48 x10^3/uL (1.8-6.8); NEUTROPHILS % (AUTO) 75 % (42-75); PLATELET COUNT 331 x10^3/uL (130-400); RED BLOOD COUNT 5.37 x10^6/uL (3.82-5.3); RED CELL DISTRIBUTION WIDTH 15.6 % (9.6-15.2)
[2019-05-25 10:04] LABS: ALANINE AMINOTRANSFERASE 34 U/L (12-78); ALBUMIN 3.5 g/dL (3.4-5.0); ANION GAP 5 mmol/L (5-15); CALCIUM 8.9 mg/dL (8.5-10.1); CHLORIDE 104 mmol/L (98-107); CREATININE 0.66 mg/dL (0.55-1.02)
[2019-05-25 10:09] LABS: ALKALINE PHOSPHATASE 113 U/L (45-117); BILIRUBIN,TOTAL 0.2 mg/dL (0.2-1.0); TOTAL PROTEIN 7.4 g/dL (6.4-8.2); TROPONIN I < 0.015 ng/mL (0.000-0.045)
[2019-05-25] MEDS ORDERED: LOPE2CAP PO (11:41)
[2019-05-25] MEDS ORDERED: METF500T17 PO (11:41)
--- NOTE | 2019-05-25 11:47 | NUR ---
PT RESTING IN BED, PLACED ON 2L O2 WHILE RESTING. PT USUALLY USES 3L O2 AT NIGHT. MED REC COMPLETE. REPORT CALLED TO SAM VALDIVIA RN. PT DENIES ANY NEEDS OR CONCERNS AT THIS TIME. CALL LIGHT IN REACH. AWAITING TRANSPORT.
[2019-05-25] MEDS ORDERED: BUPIVACAINE SUBD (11:53)
[2019-05-25] MEDS ORDERED: HYDR1LIQ6 SUBD (11:54)
[2019-05-25] MEDS ORDERED: DILAU (11:54)
[2019-05-25 12:19] VITALS: BP 108/73
[2019-05-25] MEDS ORDERED: ENOXAPARIN 40 MG/0.4 ML SQ SCH (13:30)
[2019-05-25] MEDS: HYDROCORTISONE 5 MG TABLET PO SCH (13:30)
[2019-05-25 14:00] VITALS: BP 124/80
[2019-05-25 15:05] LABS: TROPONIN I < 0.015 ng/mL (0.000-0.045)
[2019-05-25] MEDS: INSULIN LISPRO 100 UNIT/ML, 3ML VIAL SQ-INSULIN SCH (16:00)
[2019-05-25] MEDS: INSULIN LISPRO 100 UNITS/ML, PEN SQ-INSULIN SCH ×2 (16:00→20:52)
[2019-05-25] MEDS: GABAPENTIN 400 MG CAPSULE PO SCH ×2 (17:30→20:47)
[2019-05-25 19:02] VITALS: BP 99/61
[2019-05-25] MEDS: metFORMIN 500 MG TABLET PO SCH (20:47)
[2019-05-25] MEDS: DULOXETINE 30 MG CAPSULE.DR PO SCH (20:47)
[2019-05-25] MEDS ORDERED: DULOXETINE 30 MG CAPSULE.DR PO SCH (21:00)
[2019-05-25] MEDS ORDERED: ATORVASTATIN 40 MG TABLET PO SCH (21:00)
[2019-05-25] MEDS ORDERED: HYDROCORTISONE 10 MG TABLET PO SCH (21:00)
[2019-05-26 01:56] VITALS: BP 95/58
[2019-05-26 06:51] VITALS: BP 101/66
[2019-05-26] MEDS: INSULIN LISPRO 100 UNIT/ML, 3ML VIAL SQ-INSULIN SCH (07:00)
[2019-05-26] MEDS: INSULIN LISPRO 100 UNITS/ML, PEN SQ-INSULIN SCH (07:00)
[2019-05-26] MEDS: metFORMIN 500 MG TABLET PO SCH (08:36)
[2019-05-26] MEDS: DULOXETINE 30 MG CAPSULE.DR PO SCH (08:36)
[2019-05-26] MEDS: HYDROCORTISONE 5 MG TABLET PO SCH (08:36)
[2019-05-26] MEDS: GABAPENTIN 400 MG CAPSULE PO SCH (08:37)
[2019-05-26] MEDS ORDERED: LACTOBACILLUS CHEW TABLET PO SCH (09:00)
[2019-05-26] MEDS ORDERED: FUROSEMIDE 20 MG TABLET PO SCH (09:00)
[2019-05-26] MEDS ORDERED: TEMPLATE NON-FORMULARY MED. (Bupropion Hcl** (Bupropion Xl**) 150 MG) PO SCH (09:00)
[2019-05-26] MEDS ORDERED: METOPROLOL TARTRATE 50 MG TAB PO SCH (09:00)
[2019-05-26] MEDS ORDERED: HYDROMORPHONE HOMETD PRN (09:00)
[2019-05-26] MEDS ORDERED: MELOXICAM 15 MG TABLET PO SCH (09:00)
[2019-05-26] MEDS ORDERED: SPIRONOLACTONE 25 MG TABLET PO SCH (09:00)
[2019-05-26] MEDS ORDERED: PAROXETINE 10 MG TABLET PO SCH (09:00)
[2019-05-26] MEDS ORDERED: ALLOPURINOL 300 MG TABLET PO SCH (09:00)
[2019-05-26] MEDS ORDERED: LOPERAMIDE 2 MG CAPSULE PO SCH (09:00)
[2019-05-26] MEDS ORDERED: INSULIN DEGLUDEC 50 UNIT SQ SCH (09:00)
[2019-05-26] MEDS ORDERED: DULO30CA2 PO (11:24)
== END 2019-05-26 12:20 | disposition home or self-care (01) ==
LOC: ED 09:02 → INTOOBSV 10:57 → EDIP 10:57 → 5SO 12:37 → DCLOUNGE 05-26 12:16
PROVIDERS: ADMIT Family Medicine; ATTEND Family Medicine
DX: R00.2 Palpitations (principal); R07.89 Other chest pain; I10 Essential (primary) hypertension; M10.9 Gout, unspecified; R60.9 Edema, unspecified; E11.9 Type 2 diabetes mellitus without complications; G89.29 Other chronic pain; Z79.4 Long term (current) use of insulin; Z79.82 Long term (current) use of aspirin; F17.210 Nicotine dependence, cigarettes, uncomplicated
CPT/HCPCS: 36415; 71045; 80053; 82962; 83880; 84145; 84443; 84484; 85025; 85379; 93005; 96372; 99285; G0378; J1650; J1817